=== PATIENT | female | born 1945 | race Caucasian/White ===

== ENCOUNTER 2018-05-09 17:12 | Emergency (ER) | payer MEDICARE, OTHER ==
[~2018-05-09] VITALS: Ht 160 cm; Wt 81.6 kg
[2018-05-09 17:24] VITALS: BP 195/91
--- NOTE | 2018-05-09 18:36 | NUR ---
PT BIB FAMILY TO THE ED WITH THE CHIEF C/O LEFT GREAT TOE PAIN SINCE SATURDAY. PER FAMILY PT HIT THE TOE BY DOOR WHILE OPENING THE DOOR. MOVES TOE. +SENSATION, +CIRCULATION. RED AND SWOLLEN TOE. WARM TO TOUCH. DENIES PAIN AT THIS TIME. DENIES ANY OTHER PROBLEM AT THIS TIME. ER MD AWARE.
--- NOTE | 2018-05-09 19:08 | NUR ---
REPORT GIVEN TO CASING BLOWER RN.
[2018-05-09 19:09] VITALS: BP 168/78
--- NOTE | 2018-05-09 19:10 | NUR ---
Patient discharged with v/s stable. Written and verbal after care instructions given and explained. Patient verbalized understanding. Ambulatory with steady gait. All questions addressed prior to discharge. Advised to follow up with PMD.
== END 2018-05-09 19:10 | disposition home or self-care (01) ==
LOC: MED 17:12
DX: S92.422A Displaced fracture of distal phalanx of left great toe, initial encounter for closed fracture (principal); E11.9 Type 2 diabetes mellitus without complications; I10 Essential (primary) hypertension; W22.8XXA Striking against or struck by other objects, initial encounter; Y93.89 Activity, other specified; Y92.89 Other specified places as the place of occurrence of the external cause; Y99.8 Other external cause status
CPT/HCPCS: 73660; 99283

== ENCOUNTER 2021-06-26 14:28 | Emergency (ER) | payer MEDICARE, OTHER ==
[~2021-06-26] VITALS: Ht 170.2 cm; Wt 73.5 kg
[2021-06-26 14:37] VITALS: BP 159/82
--- NOTE | 2021-06-26 14:41 | NUR ---
PT TO LOBBY.
--- NOTE | 2021-06-26 15:52 | NUR ---
PT TAKEN TO XR VIA W/C.
[2021-06-26] MEDS ORDERED: KETOROLAC 60 MG/2 ML VIAL IM ONE (16:25)
[2021-06-26 16:50] VITALS: BP 160/83
[2021-06-26] MEDS ORDERED: IBUP-2213 PO (16:50)
[2021-06-26] MEDS ORDERED: ACET-8386 PO (16:50)
--- NOTE | 2021-06-26 17:18 | NUR ---
Patient discharged with v/s stable. Written and verbal after care instructions FOR ACUTE KNEE PAIN given and explained. Patient alert, oriented and verbalized understanding of instructions. Ambulatory with steady gait. All questions addressed prior to discharge. ID band removed. Patient advised to follow up with PMD. Rx of HYDROCODONE AND IBUPROFEN given. . Opportunity to ask questions provided and answered.
== END 2021-06-26 17:18 | disposition home or self-care (01) ==
LOC: MED 14:28
DX: S80.01XA Contusion of right knee, initial encounter (principal); E11.9 Type 2 diabetes mellitus without complications; I10 Essential (primary) hypertension; Z98.890 Other specified postprocedural states; W18.39XA Other fall on same level, initial encounter; Y92.89 Other specified places as the place of occurrence of the external cause; Y93.89 Activity, other specified; Y99.8 Other external cause status
CPT/HCPCS: 73562; 96372; 99283; J1885